=== PATIENT | male | born 1995 | race Caucasian/White ===

== ENCOUNTER 2022-10-12 16:36 | Emergency (ER) | payer SELFPAY ==
[~2022-10-12] VITALS: Ht 180.3 cm; Wt 84.0 kg
[2022-10-12] MEDS ORDERED: LORazepam 1 MG tablet PO ONE ×2 (17:10→18:40)
[2022-10-12] MEDS ORDERED: LIDOcaine 1% W/epiNEPHrine 1:100,000 20ml vial SQ ONE (17:25)
[2022-10-12 17:29] LABS: CLARITY,URINE CLEAR (Clear); COLOR,URINE YELLOW (Yellow); GLUCOSE, URINE NEGATIVE (Neg); KETONES,URINE NEGATIVE (Neg); LEUKOCYTE ESTERASE ,URINE NEGATIVE (Neg); NITRITES, URINE NEGATIVE (Neg); OCCULT BLOOD,URINE SMALL (Neg); PH,URINE 6.5 (4.8-8.0); PROTEIN,URINE NEGATIVE (Neg); UROBILINOGEN,URINE 0.2 E.U/dL (0.2-1.0)
[2022-10-12 17:33] LABS: UA COLLECTION TYPE CLN CATCH MIDSTREAM
[2022-10-12] MEDS ORDERED: LIDOcaine 1% 30ml preserv. free vial SQ STA (17:33)
[2022-10-12 17:34] LABS: BACTERIA,URINE NONE SEEN /HPF (Neg); MUCUS STRANDS NONE SEEN /LPF (Neg); RBC,URINE 0-2 /HPF (0-2); SQUAMOUS EPITHELIAL CELL,UR NONE SEEN /LPF (FEW); WBC,URINE NONE SEEN /HPF (0-4)
[2022-10-12] MEDS ORDERED: hydrOXYzine 25 MG tablet PO ONE (17:35)
[2022-10-12 17:40] LABS: URINE AMPHETAMINE SCREEN NEGATIVE (Neg); URINE BARBITUATE SCREEN NEGATIVE (Neg); URINE BENZODIAZEPINES SCREEN NEGATIVE (Neg); URINE CANNABINOID SCREEN POSITIVE (Neg); URINE COCAINE SCREEN NEGATIVE (Neg); URINE METHADONE SCREEN NEGATIVE (Neg); URINE OPIATE SCREEN NEGATIVE (Neg); URINE PHENCYCLIDINE SCREEN NEGATIVE (Neg)
[2022-10-12] MEDS ORDERED: LIDOcaine 1% (10mg/ml) 2ml vial SQ STA (17:40)
[2022-10-12] MEDS ORDERED: LIDOCAINE 1%/EPI 1:100,000 inj. 10 ML multi-dose vial SQ ONE (17:40)
[2022-10-12 18:25] LABS: BASOPHILS # (AUTO) 0.1 X10'3 (0-0.2); BASOPHILS % (AUTO) 0.5 % (0-1); EOSINOPHILS # (AUTO) 0.1 X10'3 (0-0.9); EOSINOPHILS % (AUTO) 0.7 % (0-6); HEMATOCRIT 42.8 % (42.0-52.0); HEMOGLOBIN 14.8 g/dl (14.0-17.9); LYMPHOCYTES # (AUTO) 3.5 X10'3 (1.1-4.8); LYMPHOCYTES % (AUTO) 30.8 % (21-51); MEAN CORPUSCULAR HEMOGLOBIN 31.2 PG (27.0-31.0); MEAN CORPUSCULAR HGB CONC 34.6 g/dL (33.0-36.5); MEAN CORPUSCULAR VOLUME 90.2 FL (78-98); MEAN PLATELET VOLUME 7.1 FL (7.4-10.4); MONOCYTES # (AUTO) 0.8 X10'3 (0-0.9); MONOCYTES % (AUTO) 7.1 % (2-12); NEUTROPHILS # (AUTO) 6.9 X10'3 (1.8-7.7); NEUTROPHILS % (AUTO) 60.9 % (42-75); PLATELET COUNT 351 X10'3 (140-440); RED BLOOD COUNT 4.75 X10'6 (4.70-6.10); RED CELL DISTRIBUTION WIDTH 12.7 % (11.5-14.5); WHITE BLOOD COUNT 11.3 X10'3 (4.5-11.0)
[2022-10-12 18:38] LABS: ALANINE AMINOTRANSFERASE 31 U/L (12-78); ALBUMIN 4.3 G/DL (3.4-5.0); ALBUMIN/GLOBULIN RATIO 1.3 (1.1-1.5); ALKALINE PHOSPHATASE 105 IU/L (46-116); ANION GAP 14 (8-16); ASPARTATE AMINO TRANSFERASE 17 U/L (10-37); BILIRUBIN,TOTAL 0.3 MG/DL (0.1-1.0); BLOOD UREA NITROGEN 9 MG/DL (7-18); BUN/CREATININE RATIO 9.5 (5.4-32.0); CALCIUM 9.2 MG/DL (8.5-10.1); CHLORIDE 101 MMOL/L (99-107); CREATININE 0.95 MG/DL (0.60-1.10); GLUCOSE 117 MG/DL (70-104); POTASSIUM 3.7 MMOL/L (3.5-5.1); SODIUM 138 MMOL/L (135-145); TOTAL CARBON DIOXIDE 23.3 MMOL/L (24-32); TOTAL PROTEIN 7.7 G/DL (6.4-8.2); eGFR > 90 ML/MIN
--- NOTE | 2022-10-12 19:00 | NUR ---
The patient moved to bed 24 from the main ER. He was cooperative with the move. He was made aware of the plan of care. He stated that he currently is not taking any psychiatric medications. He has dressing to the side of his face after he made self inflicted cuts to his face. He stated that he has been on an antidepressant in the past but he became manic then severely depressed. He reports mother has a history of bipolar. He denies voices but states that he has intrussive thoughts that tell him that "You're a piece of shit" Provider made aware of high anxiety and ativan ordered.
[2022-10-12 19:06] LABS: ETHANOL 0.136 GM/DL (0.0-0.010)
[2022-10-12] MEDS ORDERED: NO HOME MEDS (20:40)
--- NOTE | 2022-10-12 20:55 | NUR ---
The patient has been resting on his bed. ETOH added to labs and his BA was .136.
--- NOTE | 2022-10-12 21:03 | NUR ---
PACKET SENT TO [facility]
--- NOTE | 2022-10-12 22:36 | NUR ---
The patient appears to be sleeping
--- NOTE | 2022-10-13 00:13 | NUR ---
The patient appears to be sleeping
--- NOTE | 2022-10-13 02:07 | NUR ---
The patient appears to be sleeping
--- NOTE | 2022-10-13 04:02 | NUR ---
The patient appears to be sleeping
--- NOTE | 2022-10-13 05:31 | NUR ---
The patient appears to be sleeping
[2022-10-13 05:55] VITALS: BP 108/66
[2022-10-13] MEDS ORDERED: hydrOXYzine 25 MG tablet PO PRN (07:00)
== END 2022-10-13 13:59 ==
LOC: ER 16:37
DX: S01.411A Laceration without foreign body of right cheek and temporomandibular area, initial encounter (principal); Z20.822 Contact with and (suspected) exposure to COVID-19; R45.851 Suicidal ideations; F32.A Depression, unspecified; F10.129 Alcohol abuse with intoxication, unspecified; F43.20 Adjustment disorder, unspecified; X58.XXXA Exposure to other specified factors, initial encounter; Y93.89 Activity, other specified; Y92.89 Other specified places as the place of occurrence of the external cause; Y99.8 Other external cause status; Y90.0 Blood alcohol level of less than 20 mg/100 ml
CPT/HCPCS: 12014; 36415; 80053; 80305; 80320; 81001; 85025; 87811; 99285; J3490; Q0177; 12002; A6449

== ENCOUNTER 2023-10-13 23:09 | Emergency (ER) | payer MEDICAID ==
[~2023-10-13] VITALS: Ht 180.3 cm; Wt 84.1 kg
[~2023-10-13 23:09] MED LIST: NO HOME MEDS
[2023-10-13 23:42] LABS: BASOPHILS % (AUTO) 0.4 % (0-1); EOSINOPHILS # (AUTO) 0.1 X10'3 (0-0.9); HEMOGLOBIN 14.9 g/dl (14.0-17.9); LYMPHOCYTES # (AUTO) 2.2 X10'3 (1.1-4.8); LYMPHOCYTES % (AUTO) 20.2 % (21-51); MEAN CORPUSCULAR HEMOGLOBIN 31.4 PG (27.0-31.0); MEAN CORPUSCULAR HGB CONC 34.6 g/dL (33.0-36.5); MEAN CORPUSCULAR VOLUME 90.6 FL (78-98); MEAN PLATELET VOLUME 7.3 FL (7.4-10.4); MONOCYTES # (AUTO) 0.7 X10'3 (0-0.9); MONOCYTES % (AUTO) 6.2 % (2-12); NEUTROPHILS # (AUTO) 7.8 X10'3 (1.8-7.7); NEUTROPHILS % (AUTO) 72.2 % (42-75); PLATELET COUNT 313 X10'3 (140-440); RED BLOOD COUNT 4.75 X10'6 (4.70-6.10); RED CELL DISTRIBUTION WIDTH 12.8 % (11.5-14.5); WHITE BLOOD COUNT 10.8 X10'3 (4.5-11.0)
[2023-10-14] LABS: ALANINE AMINOTRANSFERASE 34 U/L (12-78); ALBUMIN/GLOBULIN RATIO 1.1 (1.1-1.5); ALKALINE PHOSPHATASE 108 IU/L (46-116); ANION GAP 10 (8-16); ASPARTATE AMINO TRANSFERASE 16 U/L (10-37); BILIRUBIN,TOTAL 0.6 MG/DL (0.1-1.0); BLOOD UREA NITROGEN 12 MG/DL (7-18); BUN/CREATININE RATIO 11.5 (10.0-20.0); CALCIUM 9.3 MG/DL (8.5-10.1); CHLORIDE 103 MMOL/L (99-107); CREATININE 1.04 MG/DL (0.60-1.10); ETHANOL < 10 MG/DL (<10); GLUCOSE 100 MG/DL (70-104); POTASSIUM 3.7 MMOL/L (3.5-5.1); SALICYLATE 3.2 MG/DL (4.0-20.0); SODIUM 137 MMOL/L (135-145); TOTAL CARBON DIOXIDE 24.1 MMOL/L (24-32); TOTAL PROTEIN 7.7 G/DL (6.4-8.2); eCRCL 111 ML/MIN; eGFR 84 ML/MIN
[2023-10-14 00:04] LABS: ACETAMINOPHEN < 2.0 UG/ML (10-30)
[2023-10-14] MEDS ORDERED: TETanus/Pertussis (Acell)/Diphther VAC/PF (Tdap-Adult) 0.5ml syringe IMVAC ONE (00:30)
[2023-10-14] MEDS ORDERED: MELA10TA2 PO (01:54)
[2023-10-14] MEDS ORDERED: Melatonin 3mg tablet PO ONE (01:55)
[2023-10-14 02:13] LABS: URINE AMPHETAMINE SCREEN NEGATIVE (Neg); URINE BARBITUATE SCREEN NEGATIVE (Neg); URINE BENZODIAZEPINES SCREEN NEGATIVE (Neg); URINE CANNABINOID SCREEN POSITIVE (Neg); URINE COCAINE SCREEN NEGATIVE (Neg); URINE METHADONE SCREEN NEGATIVE (Neg); URINE OPIATE SCREEN NEGATIVE (Neg); URINE PHENCYCLIDINE SCREEN NEGATIVE (Neg)
[2023-10-14 05:58] VITALS: TEMP 97.6
[2023-10-14] MEDS ORDERED: LORazepam 1 MG tablet PO ONE (09:35)
[2023-10-14 12:19] LABS: BILIRUBIN,URINE SMALL (Neg); CLARITY,URINE CLOUDY (Clear); COLOR,URINE YELLOW (Yellow); GLUCOSE, URINE NEGATIVE (Neg); KETONES,URINE 40 mg/dl (Neg); LEUKOCYTE ESTERASE ,URINE NEGATIVE (Neg); NITRITES, URINE NEGATIVE (Neg); OCCULT BLOOD,URINE NEGATIVE (Neg); PROTEIN,URINE NEGATIVE (Neg)
[2023-10-14 12:22] LABS: UA COLLECTION TYPE VOIDED
[2023-10-14 12:56] LABS: SQUAMOUS EPITHELIAL CELL,UR FEW /LPF (FEW)
[2023-10-14 12:57] LABS: TRANSITIONAL EPI CELLS,URINE FEW /HPF
[2023-10-14 12:58] LABS: RBC,URINE 0-2 /HPF (0-2)
[2023-10-14 13:04] LABS: BACTERIA,URINE 1+ /HPF (Neg)
[2023-10-14 13:06] LABS: MUCUS STRANDS MANY /LPF (Neg)
[2023-10-14 14:58] VITALS: BP 125/75; PULSE 78; RESP 16; O2SAT 98
== END 2023-10-14 15:01 ==
LOC: ER 23:10
DX: S00.81XA Abrasion of other part of head, initial encounter (principal); Z20.822 Contact with and (suspected) exposure to COVID-19; R45.851 Suicidal ideations; W22.8XXA Striking against or struck by other objects, initial encounter; Y93.89 Activity, other specified; Y92.89 Other specified places as the place of occurrence of the external cause; Y99.8 Other external cause status
CPT/HCPCS: 36415; 70450; 80053; 80305; 80320; 80329; 81001; 84443; 85025; 87088; 87811; 99285

== ENCOUNTER 2024-06-01 19:02 | Emergency (ER) | payer MEDICAID, OTHER ==
[~2024-06-01] VITALS: Ht 177.8 cm; Wt 81.8 kg
[~2024-06-01 19:02] MED LIST changes: +MELA10TA2 PO; -NO HOME MEDS
[2024-06-01] MEDS: LORazepam 1 MG tablet PO ONE (19:40)
[2024-06-01] MEDS: diphenhydrAMINE 25mg capsule PO ONE (19:40)
[2024-06-01] MEDS: haloperidol 5mg tablet PO ONE (19:40)
[2024-06-01 19:46] LABS: BASOPHILS # (AUTO) 0.1 X10'3 (0-0.2); BASOPHILS % (AUTO) 1.2 % (0-1); EOSINOPHILS # (AUTO) 0.3 X10'3 (0-0.9); EOSINOPHILS % (AUTO) 2.9 % (0-6); HEMATOCRIT 45.6 % (42.0-52.0); HEMOGLOBIN 15.5 g/dl (14.0-17.9); LYMPHOCYTES % (AUTO) 39.5 % (21-51); MEAN CORPUSCULAR HEMOGLOBIN 31.2 PG (27.0-31.0); MEAN CORPUSCULAR VOLUME 91.8 FL (78-98); MEAN PLATELET VOLUME 7.7 FL (7.4-10.4); MONOCYTES # (AUTO) 0.7 X10'3 (0-0.9); MONOCYTES % (AUTO) 7.2 % (2-12); NEUTROPHILS # (AUTO) 4.9 X10'3 (1.8-7.7); NEUTROPHILS % (AUTO) 49.2 % (42-75); PLATELET COUNT 328 X10'3 (140-440); RED BLOOD COUNT 4.96 X10'6 (4.70-6.10)
[2024-06-01 20:00] LABS: ALANINE AMINOTRANSFERASE 42 U/L (12-78); ALBUMIN 4.3 G/DL (3.4-5.0); ALBUMIN/GLOBULIN RATIO 1.2 (1.1-1.5); ALKALINE PHOSPHATASE 114 IU/L (46-116); ANION GAP 10 (8-16); ASPARTATE AMINO TRANSFERASE 33 U/L (10-37); BILIRUBIN,TOTAL 0.9 MG/DL (0.1-1.0); BLOOD UREA NITROGEN 12 MG/DL (7-18); BUN/CREATININE RATIO 9.8 (10.0-20.0); CALCIUM 9.3 MG/DL (8.5-10.1); CHLORIDE 104 MMOL/L (99-107); CREATININE 1.23 MG/DL (0.60-1.10); GLUCOSE 108 MG/DL (70-104); SODIUM 140 MMOL/L (135-145); TOTAL CARBON DIOXIDE 26.5 MMOL/L (24-32); eCRCL 91 ML/MIN; eGFR 69 ML/MIN
[2024-06-01 20:12] LABS: ETHANOL < 10 MG/DL (<10)
[2024-06-01] MEDS: MIDAZolam 5mg/ml 2ml vial IM ONE (20:27)
[2024-06-02 01:25] LABS: BILIRUBIN,URINE SMALL (Neg); CLARITY,URINE SLIGHTLY CLOUDY (Clear); COLOR,URINE YELLOW (Yellow); GLUCOSE, URINE NEGATIVE (Neg); KETONES,URINE 15 mg/dl (Neg); LEUKOCYTE ESTERASE ,URINE NEGATIVE (Neg); NITRITES, URINE NEGATIVE (Neg); OCCULT BLOOD,URINE NEGATIVE (Neg); PROTEIN,URINE TRACE mg/dl (Neg)
[2024-06-02 01:29] LABS: UA COLLECTION TYPE CLN CATCH MIDSTREAM
[2024-06-02] MEDS: diazepam 5mg tablet PO ONE ×2 (01:31→01:47)
[2024-06-02 01:36] LABS: MUCUS STRANDS MANY /LPF (Neg)
[2024-06-02 01:37] LABS: BACTERIA,URINE FEW /HPF (Neg); RBC,URINE 0-2 /HPF (0-2); SPERM FEW /HPF (NEGATIVE); SQUAMOUS EPITHELIAL CELL,UR NONE SEEN /LPF (FEW); WBC,URINE 0-4 /HPF (0-4)
[2024-06-02 01:50] LABS: URINE AMPHETAMINE SCREEN NEGATIVE (Neg); URINE BARBITUATE SCREEN NEGATIVE (Neg); URINE BENZODIAZEPINES SCREEN POSITIVE (Neg); URINE CANNABINOID SCREEN POSITIVE (Neg); URINE COCAINE SCREEN NEGATIVE (Neg); URINE METHADONE SCREEN NEGATIVE (Neg); URINE OPIATE SCREEN NEGATIVE (Neg); URINE PHENCYCLIDINE SCREEN NEGATIVE (Neg)
[2024-06-02] MEDS ORDERED: NO HOME MEDS (05:53)
[2024-06-02] MEDS: LORazepam 1 MG tablet PO ONE (07:35)
[2024-06-02] MEDS: haloperidol 5mg tablet PO ONE (07:35)
[2024-06-02] MEDS: LORazepam 1 MG tablet PO PRN (13:50)
[2024-06-02] MEDS: haloperidol 5mg tablet PO PRN (13:50)
[2024-06-02 17:48] VITALS: BP 126/80; PULSE 87; RESP 17; O2SAT 99
[2024-06-02 20:10] VITALS: TEMP 97.9
== END 2024-06-02 20:10 ==
LOC: ER 19:03
DX: R45.851 Suicidal ideations (principal); Z20.822 Contact with and (suspected) exposure to COVID-19; F41.9 Anxiety disorder, unspecified; F10.90 Alcohol use, unspecified, uncomplicated
CPT/HCPCS: 36415; 80053; 80305; 80320; 81001; 84443; 85025; 87811; 96372; 99285; J2250; Q0163

== ENCOUNTER 2024-08-03 19:51 | Emergency (ER) | payer MEDICAID ==
[~2024-08-03] VITALS: Ht 177.8 cm; Wt 88.6 kg
[~2024-08-03 19:51] MED LIST changes: -MELA10TA2 PO; +NO HOME MEDS
[2024-08-03 20:42] LABS: BASOPHILS # (AUTO) 0.1 X10'3 (0-0.2); BASOPHILS % (AUTO) 0.7 % (0-1); EOSINOPHILS # (AUTO) 0.1 X10'3 (0-0.9); EOSINOPHILS % (AUTO) 1.3 % (0-6); HEMATOCRIT 38.5 % (42.0-52.0); HEMOGLOBIN 13.4 g/dl (14.0-17.9); LYMPHOCYTES # (AUTO) 3.3 X10'3 (1.1-4.8); MEAN CORPUSCULAR HEMOGLOBIN 31.1 PG (27.0-31.0); MEAN CORPUSCULAR VOLUME 88.9 FL (78-98); MEAN PLATELET VOLUME 7.2 FL (7.4-10.4); MONOCYTES # (AUTO) 0.6 X10'3 (0-0.9); MONOCYTES % (AUTO) 7.4 % (2-12); NEUTROPHILS % (AUTO) 49.6 % (42-75); PLATELET COUNT 309 X10'3 (140-440); RED BLOOD COUNT 4.32 X10'6 (4.70-6.10); WHITE BLOOD COUNT 8.1 X10'3 (4.5-11.0)
[2024-08-03] MEDS: LORazepam 1 MG tablet PO ONE (20:52)
[2024-08-03] MEDS: diphenhydrAMINE 25mg capsule PO ONE (20:52)
[2024-08-03] MEDS: haloperidol 5mg tablet PO ONE (20:52)
[2024-08-03 20:56] LABS: BILIRUBIN,URINE NEGATIVE (Neg); CLARITY,URINE CLEAR (Clear); GLUCOSE, URINE NEGATIVE (Neg); KETONES,URINE TRACE mg/dl (Neg); LEUKOCYTE ESTERASE ,URINE NEGATIVE (Neg); NITRITES, URINE NEGATIVE (Neg); OCCULT BLOOD,URINE NEGATIVE (Neg); PROTEIN,URINE NEGATIVE (Neg); UROBILINOGEN,URINE 0.2 E.U/dL (0.2-1.0)
[2024-08-03 20:57] LABS: ALBUMIN 3.8 G/DL (3.4-5.0); ANION GAP 10 (8-16); BLOOD UREA NITROGEN 7 MG/DL (7-18); BUN/CREATININE RATIO 6.4 (10.0-20.0); CALCIUM 8.7 MG/DL (8.5-10.1); CHLORIDE 103 MMOL/L (99-107); GLUCOSE 139 MG/DL (70-104); POTASSIUM 3.6 MMOL/L (3.5-5.1); SODIUM 140 MMOL/L (135-145); THYROID STIMULATING HORMONE 1.05 ulU/ml (0.34-4.50); TOTAL CARBON DIOXIDE 27.4 MMOL/L (24-32); eCRCL 100 ML/MIN; eGFR 78 ML/MIN
[2024-08-03 21:01] LABS: URINE AMPHETAMINE SCREEN NEGATIVE (Neg); URINE BARBITUATE SCREEN NEGATIVE (Neg); URINE BENZODIAZEPINES SCREEN NEGATIVE (Neg); URINE CANNABINOID SCREEN POSITIVE (Neg); URINE COCAINE SCREEN NEGATIVE (Neg); URINE METHADONE SCREEN NEGATIVE (Neg); URINE OPIATE SCREEN NEGATIVE (Neg); URINE PHENCYCLIDINE SCREEN NEGATIVE (Neg)
[2024-08-03 21:15] LABS: ETHANOL < 10 MG/DL (<10)
[2024-08-03 21:18] LABS: COLOR,URINE DARK YELLOW (Yellow); UA COLLECTION TYPE CLN CATCH MIDSTREAM
[2024-08-03] MEDS: acetaminophen 325mg tablet PO ONE (23:09)
[2024-08-03] MEDS: benztropine 1mg tablet PO ONE (23:09)
[2024-08-03] MEDS ORDERED: MIRT-87 PO (23:26)
[2024-08-03] MEDS ORDERED: LITH300C PO (23:26)
[2024-08-03] MEDS ORDERED: HYDR50TA65 PO (23:26)
[2024-08-04] MEDS: LORazepam 1 MG tablet PO ONE ×2 (08:34→13:51)
[2024-08-04] MEDS: hydrOXYzine 25 MG tablet PO PRN (08:34)
[2024-08-04] MEDS: ibuprofen 200mg tablet PO SCH (14:00)
[2024-08-04 15:09] LABS: ALANINE AMINOTRANSFERASE 34 U/L (12-78); ALBUMIN 3.7 G/DL (3.4-5.0); ALBUMIN/GLOBULIN RATIO 1.2 (1.1-1.5); ALKALINE PHOSPHATASE 103 IU/L (46-116); ANION GAP 7 (8-16); ASPARTATE AMINO TRANSFERASE 14 U/L (10-37); BILIRUBIN,TOTAL 0.2 MG/DL (0.1-1.0); BLOOD UREA NITROGEN 13 MG/DL (7-18); CALCIUM 8.7 MG/DL (8.5-10.1); CHLORIDE 105 MMOL/L (99-107); CREATININE 0.93 MG/DL (0.60-1.10); GLUCOSE 106 MG/DL (70-104); POTASSIUM 4.2 MMOL/L (3.5-5.1); SODIUM 139 MMOL/L (135-145); TOTAL CARBON DIOXIDE 27.4 MMOL/L (24-32); TOTAL PROTEIN 6.7 G/DL (6.4-8.2); eCRCL 119 ML/MIN; eGFR > 90 ML/MIN
[2024-08-04] MEDS ORDERED: lithium carbonate 150mg capsule PO SCH (21:00)
[2024-08-04] MEDS ORDERED: mirtazapine 15mg tablet PO SCH (21:00)
[2024-08-04 22:17] VITALS: BP 134/70; PULSE 78; RESP 14; TEMP 98.6; O2SAT 98
== END 2024-08-04 22:25 ==
LOC: ER 19:52
DX: R45.851 Suicidal ideations (principal); Z20.822 Contact with and (suspected) exposure to COVID-19; F41.9 Anxiety disorder, unspecified; Z72.89 Other problems related to lifestyle
CPT/HCPCS: 36415; 80048; 80053; 80305; 80320; 81003; 84443; 85025; 87811; 99285; Q0163; Q0177